=== PATIENT | female | born 1970 | race African-American/Black ===

== ENCOUNTER → 2017-01-03 | Outpatient (CLI) | payer MEDICAID ==
[2016-06-05 13:37] VITALS: BP 116/63
[~2017-01-03] MED LIST: CYCL10TA2 PO
--- NOTE | 2017-01-03 13:41 | RAD ---
Lateral lumbar spine, 2 views, 01/03/2017: History: Back pain Standing lateral views of the lumbar spine were obtained in flexion and extension as requested. The vertebral heights are well-maintained. The intervertebral disc spaces are fairly well preserved. There are moderate degenerative changes involving the facet joints in the lower lumbar spine. There is a minimal spondylolisthesis at L4-5 which demonstrates only slight worsening with flexion. The subluxation measures 2-3 mm in extension and 3-4 mm in flexion. This limited exam is otherwise unremarkable. IMPRESSION: Minimal spondylolisthesis at L4-5 due to facet joint arthropathy.
== END | disposition home or self-care (01) ==
LOC: RAD 12:13
PROVIDERS: ATTEND Neurological Surgery
DX: M43.16 Spondylolisthesis, lumbar region (principal)
CPT/HCPCS: 72120